=== PATIENT | female | born 2000 | race Caucasian/White ===

== ENCOUNTER 2019-11-08 11:15 | Outpatient (CLI) | payer OTHER, SELFPAY ==
--- NOTE | 2019-11-08 11:38 | ECG_ITS ---
Measurements Intervals [place] Rate: 68 P: 36 AL: 126 QRS: 60 QRSD: 74 T: 30 QT: 344 QTc: 367 Interpretive Statements SINUS RHYTHM WITH SINUS ARRHYTHMIA NONSPECIFIC T-WAVE ABNORMALITY- ANTERIOR LEADS BORDERLINE ECG Electronically Signed On 11-08-2019 13:24:[address] MAINTENANCE SUPERVISOR by Maksim Kennedy D.O.
== END 2019-11-08 11:16 | disposition home or self-care (01) ==
PROVIDERS: PCP Emergency Medicine; Visit Provider Emergency Medicine
DX: Z00.00 Encounter for general adult medical examination without abnormal findings (principal)
CPT/HCPCS: 93005